=== PATIENT | female | born 1995 | race American Indian/Alaskan Native ===

== ENCOUNTER 2020-05-30 07:16 | Emergency (ER) | payer MEDICAID ==
[2020-05-30 07:36] VITALS: BP 155/74
--- NOTE | 2020-05-30 09:03 | Emergency Department Report ---
- General Chief Complaint: Upper Respiratory Infection Stated Complaint: BODY ACHES/NAUSEA/RUNNY NOSE Time Seen by Provider: 05/30/20 08:51 Source: patient Mode of arrival: Ambulatory Limitations: No Limitations - History of Present Illness Initial Comments: 25-year-old female with no significant past history presents to the ER today with complaints of URI symptoms. Patient states her symptoms started early yesterday morning. She reports rhinorrhea, nasal congestion, sore throat, generalized body aches and a dry cough. She denies any GI or symptoms. She denies any fever or chills. She denies any known COVID-19 exposure or any other ill contacts or recent travel. She does admit to tobacco use occasionally. Last menstrual cycle was May 16, 2020. MD Complaint: cough, sore throat, rhinorrhea, nasal congestion -: Gradual (yesterday morning) - Related Data Previous Rx's Medication Instructions Recorded Last Taken Type Cetirizine HCl [Zyrtec 10mg tab] 10 mg PO DAILY #30 tablet 05/30/20 Unknown Rx Fluticasone [Flonase] 2 spray NS QDAY #1 bottle 05/30/20 Unknown Rx Allergies Allergy/AdvReac Type Severity Reaction Status Date / Time No Known Allergies Allergy Verified 05/30/20 07:35 ED Review of Systems ROS: Stated complaint: BODY ACHES/NAUSEA/RUNNY NOSE Other details as noted in HPI Comment: All other systems reviewed and negative Constitutional: denies: chills, diaphoresis, fever, malaise, weakness Eyes: denies: eye pain, eye discharge, vision change ENT: throat pain, congestion. denies: ear pain, dental pain, hearing loss, epistaxis Respiratory: cough. denies: shortness of breath, SOB with exertion, SOB at rest, stridor, wheezing Cardiovascular: denies: chest pain, palpitations, dyspnea on exertion Endocrine: no symptoms reported Gastrointestinal: denies: abdominal pain, nausea, vomiting, diarrhea, constipation, hematemesis, hematochezia Musculoskeletal: myalgia Neurological: denies: headache, weakness, numbness, paresthesias, confusion, abnormal gait Psychiatric: denies: anxiety, depression, auditory hallucinations, visual hallucinations, homicidal thoughts, suicidal thoughts Hematological/Lymphatic: denies: easy bleeding, easy bruising ED Past Medical Hx - Past Medical History Previous Medical History?: No - Surgical History Past Surgical History?: No - Social History Smoking Status: Never Smoker Substance Use Type: None - Medications Home Medications: Home Medications Medication Instructions Recorded Confirmed Last Taken Type Cetirizine HCl [Zyrtec 10mg tab] 10 mg PO DAILY #30 tablet 05/30/20 Unknown Rx Fluticasone [Flonase] 2 spray NS QDAY #1 bottle 05/30/20 Unknown Rx ED Physical Exam - General Limitations: No Limitations General appearance: alert, in no apparent distress - Head Head exam: Present: atraumatic, normocephalic, normal inspection - Eye Eye exam: Present: normal appearance, PERRL, EOMI Pupils: Present: normal accommodation - ENT ENT exam: Present: normal exam, mucous membranes moist - Expanded ENT Exam Expanded TM/Canal exam: Effusion: Right TM, Left TM Mouth exam: Present: normal external inspection Throat exam: Positive: tonsillar erythema. Negative: tonsillomegaly, tonsillar exudate, R peritonsillar mass, L peritonsillar mass - Neck Neck exam: Present: normal inspection, full ROM. Absent: meningismus - Respiratory Respiratory exam: Present: normal lung sounds bilaterally. Absent: respiratory distress - Cardiovascular Cardiovascular Exam: Present: regular rate, normal rhythm, normal heart sounds - GI/Abdominal GI/Abdominal exam: Present: soft. Absent: distended, tenderness, guarding, r ebound - Neurological Exam Neurological exam: Present: alert, oriented X3, CN II-XII intact, normal gait - Psychiatric Psychiatric exam: Present: normal affect, normal mood - Skin Skin exam: Present: intact ED Course Vital Signs 05/30/20 07:33 Temperature 98.3 F Pulse Rate 97 H Respiratory 18 Rate Blood Pressure 155/74 O2 Sat by Pulse 100 Oximetry ED Medical Decision Making - Medical Decision Making The patient is resting comfortably, is alert and in no distress. The patient has normal mental status and is neurologically intact. The patient appears and there is no significant dehydration. There is no respiratory distress and no signs of systemic toxicity. Her history, exam, diagnostic testing and current condition do not demonstrate an infectious process such as meningitis, severe pneumonia, retropharyngeal abscess, epiglottitis, sepsis or other serious bacterial infection requiring further testing, treatment, consultation or admission at this time. Suspect viral URI. The vital signs have been stable. Discussed suspected diagnosis and treatment plan with patient. Also recommend that she get an outpatient COVID-19 test especially since that she is in school. She expressed understanding of instructions and agree plan. The patient's condition is stable and appropriate for discharge. The patient will pursue further outpatient evaluation with the primary care physician. Critical care attestation.: If time is entered above; I have spent that time in minutes in the direct care of this critically ill patient, excluding procedure time. ED Disposition Clinical Impression: Viral URI Disposition: DC- TO HOME OR SELFCARE Is pt being admited?: No Does the pt Need Aspirin: No Condition: Stable Instructions: Upper Respiratory Infection, Adult, [id number] Additional Instructions: Take the zyrtec, and flonase as prescribed. You can take mucinex or Robitussin from [id number] to help with cough. You can take Tylenol and/or ibuprofen to help with pain. Recommend that you get an outpatient COVID-19 test prior to returning to school next week. Return to the ER if your symptoms changes or worsens in any way. Prescriptions: Fluticasone [Flonase] 2 spray NS QDAY #1 bottle Cetirizine HCl [Zyrtec 10mg tab] 10 mg PO DAILY #30 tablet Referrals: PADMA PICKARD MD [Staff Physician] - 3-5 Days Forms: Work/School Release Form(ED) Time of Disposition: 09:05
== END 2020-05-30 09:41 | disposition home or self-care (01) ==
LOC: ED 07:16
DX: J06.9 Acute upper respiratory infection, unspecified (principal); B97.89 Other viral agents as the cause of diseases classified elsewhere; Z79.899 Other long term (current) drug therapy
CPT/HCPCS: 99282